=== PATIENT | male | born 1995 | race Caucasian/White ===

== ENCOUNTER 2017-11-25 23:48 | Emergency (ER) | payer SELFPAY ==
--- NOTE | 2017-11-26 00:14 | NUR ---
CALLED PT IN WAITING AREA, NO ANSWER.
--- NOTE | 2017-11-26 00:36 | NUR ---
CALLED PT IN WAITING AREA, NO ANSWER.
--- NOTE | 2017-11-26 00:47 | NUR ---
CALLED PT IN WAITING AREA, NO ANSWER.
== END 2017-11-26 00:48 | disposition left against medical advice (07) ==
LOC: ER 23:50
DX: Z53.21 Procedure and treatment not carried out due to patient leaving prior to being seen by health care provider (principal)